=== PATIENT | male | born 1990 | race Caucasian/White ===

== ENCOUNTER 2017-01-20 15:17 | Emergency (ER) | payer BC, OTHER ==
[~2017-01-20] VITALS: Ht 180.3 cm; Wt 69.0 kg
[2017-01-20 15:21] VITALS: BP 130/83; PULSE 77; TEMP 36.7; O2SAT 96; Ht 180.3 cm; Wt 69.0 kg
--- NOTE | 2017-01-20 23:35 | EMERGENCY ROOM VISIT NOTE ---
History First contact with patient: 15:49 Chief Complaint: EAR PAIN Stated Complaint: RIGHT EAR PAIN History of Present Illness The patient is a 26 year old male who presents to the Emergency Room with complaints of an injury to his right ear. The patient was attempting to use a anna to push a stump out of the ground when the handle released and struck him in the right ear. He denies any loss of consciousness, headache, neck pain or bleeding from the ear. He denies any hearing loss or tinnitus. He also denies any jaw pain, blurred vision or other significant discomfort, rating his pain a 3 out of 10. The patient was initially seen at the [facility] urgent care center and sent here for further reevaluation. Review of Systems 10 system review was performed and was negative except for pertinent positives and negatives as indicated in history of present illness Past Medical/Surgical History Medical Problems: (1) Alcohol Abuse-Unspec (2) Attn Deficit W Hyperact (3) Infectious Mononucleosis (4) Nasal Bone Fx-Closed (5) Tobacco Use Disorder Surgical Problems: (1) History of nasal surgery (2) History of wisdom tooth extraction Family History FH: cancer FH: diabetes mellitus FH: kidney disease Social History Smoking Status: Never Smoker Alcohol Use: none Marital Status: Housing Status: lives with family Occupation Status: employed Current/Historical Medications No Active Prescriptions or Reported Meds Allergies Coded Allergies: No Known Allergies (Verified , UNKNOWN, 02/05/12) Physical Exam Vital Signs Date Time Temp Pulse Resp B/P (MAP) Pulse Ox O2 Delivery O2 Flow Rate FiO2 01/20/17 15:21 36.7 77 16 130/83 96 Room Air Pain Rating (0-10): 3.0 Physical Exam CONSTITUTIONAL: Healthy and well nourished. Alert and oriented X 3 with positive affect. The patient does not appear in any acute distress. HEENT: Examination shows a small hematoma of the scaphoid fossa and carotid of the antihelix. Underlying cartilage appears intact. There is no open wounds of the ear. Examination shows no hemotympanum or trauma of the auditory canal. The patient has no other focal tenderness to palpation of the scalp or facial bones. Pupils equal, round and reactive. No epistaxis. NECK: Full active range of motion without discomfort. MUSCULOSKELETAL: Full range of motion of all joints without discomfort. INTEGUMENTARY: No rash or other significant dermatologic conditions noted. NEUROLOGIC: No focal neurologic deficits noted. Medical Decision & Procedures ED Course Patient history and physical exam were performed. Nurse's notes were reviewed. Vital signs were reviewed and normal. As indicated in history of present illness, the patient reports that he was sent here for possible drainage of the hematoma. The patient was advised that there is not enough blood within the hematoma to make attempted aspiration worthwhile. I did suggest applying a pressure wrap to the ear, and the patient was in agreement. The pressure wrap was personally applied by myself. The patient was encouraged to leave the wrap in place for the next 24 hours. Ibuprofen or Tylenol as needed for pain. He may also apply ice for swelling. The patient voiced understanding of all discharge instructions, was happy with plan of care, and rated his pain a 3 out of 10 at the time of discharge. Medical Decision Impression Primary Impression: Ear hematoma, right Departure Information Dispostion Home / Self-Care Condition GOOD Prescriptions No Active Prescriptions or Reported Meds Forms HOME CARE DOCUMENTATION FORM, IMPORTANT VISIT INFORMATION Patient Instructions [facility] Additional Instructions Keep pressure dressing in place for 24 hours. Intermittently apply ice to the area for swelling and pain. Ibuprofen or Tylenol if needed for additional pain relief. Return for any signs of developing infection (increasing redness, swelling or fever). Problem Qualifiers Primary Impression: Ear hematoma, right Encounter type: initial encounter Qualified Codes: S00.431A - Contusion of right ear, initial encounter
== END 2017-01-20 16:07 | disposition home or self-care (01) ==
LOC: C.EDB 15:18 → C.EDD 16:07
DX: S00.431A Contusion of right ear, initial encounter (principal); W22.8XXA Striking against or struck by other objects, initial encounter; F90.9 Attention-deficit hyperactivity disorder, unspecified type; F17.200 Nicotine dependence, unspecified, uncomplicated; Z87.81 Personal history of (healed) traumatic fracture; Z86.19 Personal history of other infectious and parasitic diseases; Z80.9 Family history of malignant neoplasm, unspecified; Z83.3 Family history of diabetes mellitus; Z84.1 Family history of disorders of kidney and ureter